=== PATIENT | female | born 1970 | race Caucasian/White ===

== ENCOUNTER → 2023-05-20 | Emergency (ER) | payer SELFPAY ==
[~2023-05-20] MED LIST: CEFTRIAXONE 1000 MG/VIAL ONE; CEPHALEXIN 250 MG CAP ONE; HYDROCODONE/APAP 5/325 MG TAB ONE; KETOROLAC 30 MG/ML INJ ONE; MORPHINE 4 MG/ML SYR ONE; NA CHLORIDE 0.9% 1,000 ML ONE; NA CHLORIDE 0.9% 50 ML ONE; ONDANSETRON 4 MG/2 ML VIAL ONE; PROMETHAZINE 25 MG TABLET ONE; TAMSULOSIN 0.4 MG SR CAP ONE; metroNIDAZOLE 500 MG TABLET ONE
[2023-05-20 18:57] LABS: Absolute Lymphocytes (CBC) 2.1 K/uL (0.7-4.9); Hematocrit 41.6 % (36.0-45.0); Lymphocytes % 18.2 % (15.3-44.8); MCV 89.3 fL (80-100); MPV 8.3 fL (7.6-11.3); Platelets 229 thou/uL (152-406); RBC Red Blood Cell Count 4.66 M/uL (3.86-4.86)
[2023-05-20 19:08] LABS: Specific Gravity 1.017 (1.005-1.030); Urine Bacteria <20 /HPF (<20); Urine Bilirubin NEGATIVE (Negative); Urine Blood Trace (Negative); Urine Clarity Extremely Turbid (Clear); Urine Color Light-Yellow (Yellow); Urine Crystals Unidentified Few /HPF (None Seen); Urine Glucose NEGATIVE (Negative); Urine Mucus Slight /HPF (None Seen); Urine Protein 1+ (Negative); Urine RBC 21-50 /HPF (None Seen); Urine Urobilinogen Normal (Normal); Urine WBC Clump Rare /HPF (None Seen); Urine pH 7.5 (5.0-7.0)
[2023-05-20 19:15] LABS: Albumin 3.8 g/dL (3.4-5.0); Bilirubin Total 0.3 mg/dL (0.2-1.0); Protein, Total 7.7 g/dL (6.4-8.2)
--- NOTE | 2023-05-20 20:36 | RAD REPORT ---
EXAM DESCRIPTION: CTAbdomen Pelvis W Contrast - 05/20/2023 8:23 pm CLINICAL HISTORY: ABD PAIN COMPARISON: No comparisons TECHNIQUE: CT of the abdomen and pelvis was performed. All CT scans are performed using dose optimization technique as appropriate and may include automated exposure control or mA/KV adjustment according to patient size. FINDINGS: Lower chest: 5 mm nodule in the right middle lobe which is subpleural in location is proba vitaliy benign. Liver: No acute abnormality or suspicious lesions. Biliary: No biliary ductal dilatation. Stomach: No significant focal abnormality. Duodenum: No significant focal abnormality. Pancreas: No significant abnormality. Spleen: No significant abnormality. Adrenal: No suspicious lesions. Kidney/ureter: Mild left-sided hydroureteronephrosis secondary to a 5 mm stone near the left distal u reter. Atrophic left kidney. At the left distal ureter near the stone, there is urothelial enhancemen t . Retroperitoneum: No retroperitoneal adenopathy. Vascular: No aneurysm. Bowel: No significant focal abnormality. Normal appendix . Peritoneum: No ascites or free air. Bladder: Grossly unremarkable. Reproductive: Small little cystic collections present in the region the endometrial canal. The larges t measures 8 millimeters. Bones: No acute fracture. Other: n/a IMPRESSION: Moderate left-sided hydroureteronephrosis secondary to a 5 mm stone at the left UVJ. Lef t renal cortical thinning noted which could indicate a chronic obstruction. Urothelial enhancement ne ar the stone probably due to inflammation. Small cystic structures in the uterus of uncertain etiology. Possibly of little clinical significance , nonemergent pelvic ultrasound could be considered to better characterize.
--- NOTE | 2023-05-20 22:20 | EDPHYS ---
Physician Documentation [facility] Name: Vicky Guillory Age: 52 yrs Sex: Female : 1970 Arrival Date: 05/20/2023 Time: 18:00 Bed 11 Private MD: ED Physician Venkat Villarreal HPI: 05/20 18:32 This 52 yrs old Female presents to ER via Ambulatory with complaints of Kidney Stone. ec2 18:32 Patient arrives today due to concern for left-sided flank pain. Patient reports that ec2 she is having left-sided flank pain that is ongoing for several days. Patient reports that it is worse with positional movements. Patient reports some nausea without vomiting, no diarrhea. Patient reports history of recurrent UTIs, states that she recently finished a course of antibiotics. Patient reports dysuria as well as foul-smelling urine.. Historical: - Allergies: 18:23 No Known Allergies; ll1 - PMHx: 18:23 None; ll1 - PSHx: 18:23 rectal artery repair; ll1 - Immunization history:: Adult Immunizations up to date. - Social history:: Smoking status: Patient denies any tobacco usage or history of. ROS: 18:32 Constitutional: as per hpi ec2 Exam: 18:32 Constitutional: GEN: NAD Head: atraumatic Eyes: EOMI Ears: External ears are ec2 normal. CV: regular rate LUNGS: no respiratory distress ABD: non-distended, soft, nontender, no guarding, nonrigid, left flank with TTP to minimal touch, no overlying skin changes, no crepitus, no ecchymosis. SKIN: no evidence of rashes MSK: no evidence of trauma NEURO: moves all extremities equally Vital Signs: 18:24 BP 130 / 90; Pulse 76; Resp 18; Temp 98.2; Pulse Ox 99% ; Pain 10/10; ll1 19:10 BP 128 / 74; Pulse 65; Resp 17 S; Pulse Ox 99% on R/A; ha1 20:00 BP 127 / 75; Pulse 68; Resp 17 S; Pulse Ox 99% on R/A; ha1 22:00 BP 126 / 76; Pulse 83; Resp 16; Pulse Ox 99% ; vc1 22:26 Weight 58.97 kg; vc1 18:24 Pain Scale: Adult ll1 MDM: 18:28 Patient medically screened. ec2 18:32 Data reviewed: vital signs. ED course: Patient arrives today for evaluation of left ec2 flank pain. Examination remarkable for well-appearing nontoxic dividual is otherwise in no acute distress with a reassuring abdominal exam with some left flank discomfort on palpation. Will obtain lab work, CT imaging and reassess the patient. Currently considering processes such as pyelonephritis, ureteral stone, MSK pain.. 19:34 ED course: CBC is unremarkable. Metabolic profile with appropriate electrolytes and ec2 renal function. Urine is infectious appearing with leuk esterase, WBCs present. Will give antibiotics. . 20:07 Transition of care: After a detail discussion of the patient's case, care is ec2 transferred to Venkat Villarreal MD. 20:38 ED course: CT - EXAM DESCRIPTION: CTAbdomen Pelvis W Contrast - 05/20/2023 8:23 pm sp4 CLINICAL HISTORY: ABD PAIN COMPARISON: No comparisons TECHNIQUE: CT of the abdomen and pelvis was performed. All CT scans are performed using dose optimization technique as appropriate and may include automated exposure control or mA/KV adjustment according to patient size. FINDINGS: Lower chest: 5 mm nodule in the right middle lobe which is subpleural in location is probably benign. Liver: No acute abnormality or suspicious lesions. Biliary: No biliary ductal dilatation. Stomach: No significant focal abnormality. Duodenum: No significant focal abnormality. Pancreas: No significant abnormality. Spleen: No significant abnormality. Adrenal: No suspicious lesions. Kidney/ureter: Mild left-sided hydroureteronephrosis secondary to a 5 mm stone near the left distal ureter. Atrophic left kidney. At the left distal ureter near the stone, there is urothelial enhancement . Retroperitoneum: No retroperitoneal adenopathy. Vascular: No aneurysm. Bowel: No significant focal abnormality. Normal appendix . Peritoneum: No ascites or free air. Bladder: Grossly unremarkable. Reproductive: Small little cystic collections present in the region the endometrial canal. The largest measures 8 millimeters. Bones: No acute fracture. Other: n/a IMPRESSION: Moderate left-sided hydroureteronephrosis secondary to a 5 mm stone at the left UVJ. Left renal cortical thinning noted which could indicate a chronic obstruction. Urothelial enhancement near the stone probably due to inflammation. Small cystic structures in the uterus of uncertain etiology. Possibly of little clinical significance, nonemergent pelvic ultrasound could be considered to better characterize. 05/20 18:28 Order name: CBC with Diff; Complete Time: 19:34 ec2 05/20 18:28 Order name: CMP; Complete Time: 19:34 ec2 05/20 18:28 Order name: Lipase; Complete Time: 19:34 ec2 05/20 18:28 Order name: Urinalysis w/ reflexes; Complete Time: 19:34 ec2 05/20 19:15 Order name: Urine Culture EDMS 05/20 18:28 Order name: CT Abd/Pelvis - IV Contrast Only; Complete Time: 20:39 ec2 05/20 18:28 Order name: IV Saline Lock; Complete Time: 18:50 ec2 05/20 18:28 Order name: Labs collected and sent; Complete Time: 18:50 ec2 05/20 21:32 Order name: Strain Urine; Complete Time: 21:52 sp4 Administered Medications: 19:15 Drug: NS 0.9% IV 1000 ml IV at 1 bolus Per protocol; 1000 mL bolus Route: IV; Rate: 1 ha1 bolus; Site: left antecubital; 19:15 Drug: Ondansetron IVP 4 mg IVP once; over 2 minutes Route: IVP; Site: left antecubital; ha1 19:17 Drug: TORadol - Ketorolac IVP 15 mg IVP once Route: IVP; Site: left antecubital; ha1 19:19 Drug: morphine IVP or IV 4 mg IVP once over 4 mins Route: IVP; Infused Over: 4 mins; ha1 Site: left antecubital; 19:44 Drug: Rocephin IV 1 grams IV at calculated rate once; Given slow IV push per pharmacy rv instructions Route: IV; Rate: calculated rate; Site: left antecubital; 21:10 Drug: Flomax PO 0.4 mg PO once Route: PO; rv 22:47 Follow up: Response: No adverse reaction; Marked relief of symptoms vc1 22:35 Drug: metroNIDAZOLE PO 500 mg PO once Route: PO; vc1 22:47 Follow up: Response: Medication administered at discharge. vc1 22:35 Drug: Promethazine PO 25 mg PO once Route: PO; vc1 22:47 Follow up: Response: Medication administered at discharge. vc1 22:36 Drug: HYDROcodone-acetaminophen PO 5 mg-325 mg 2 tabs PO once Route: PO; vc1 22:47 Follow up: Response: Medication administered at discharge. vc1 22:36 Drug: Ketorolac IVP 15 mg IVP once Route: IVP; Site: left antecubital; vc1 22:47 Follow up: Response: Medication administered at discharge. vc1 22:36 Drug: Cephalexin PO 500 mg PO once Route: PO; vc1 22:47 Follow up: Response: Medication administered at discharge. vc1 Disposition Summary: 05/20/23 22:19 Discharge Ordered Problem: new sp4 Symptoms: have improved sp4 Condition: Stable sp4 Diagnosis - Calculus of kidney sp4 - Left Ureteral stone with hydronephrosis and hematuria sp4 Followup: sp4 - With: Marcelo Guillaume MD - When: 5 - 6 days - Reason: Recheck today's complaints Discharge Instructions: - Discharge Summary Sheet sp4 - Kidney Stones sp4 Forms: - Work release form vc1 - Patient Portal Instructions sp4 Prescriptions: - Flomax 0.4 mg Oral capsule - take 1 capsule ORAL route every evening; 30 capsule; Refills: 0, Product sp4 Selection Permitted - ketorolac 10 mg Oral tablet - take 1 tablet ORAL route every 8 hours PRN pain; 30 tablet; Refills: 0, Product sp4 Selection Permitted - Cephalexin 500 mg Oral Capsule - take 1 capsule ORAL route every 8 hours for 10 days; 30 capsule; Refills: 0, sp4 Product Selection Permitted - Flagyl 500 mg Oral Tablet - take 1 tablet ORAL route every 8 hours for 10 days; 30 tablet; Refills: 0, sp4 Product Selection Permitted - Tramadol 50 mg Oral tablet - take 2 tablet ORAL route every 8 hours as needed , take together with sp4 Ketorolac; 20 tablet; Refills: 0, Product Selection Permitted - ondansetron 8 mg Oral Tablet,disintegrating - take 1 tablet ORAL route every 8 hours PRN nausea; 30 tablet; Refills: 0, sp4 Product Selection Permitted Signatures: Dispatcher [employer] Mrack South RN RN rv Lewis, Lynsay, RN RN ll1 Priscilla Galvan RN RN vc1 Christy Cunningham RN RN haVenkat Norris MD MD sp4 Chapo Faith MD MD ec2
--- NOTE | 2023-05-20 22:20 | ER ---
Nurse's Notes [facility] Name: Vicky Guillory Age: 52 yrs Sex: Female : 1970 Arrival Date: 05/20/2023 Time: 18:00 Bed 11 Private MD: Diagnosis: Calculus of kidney;Left Ureteral stone with hydronephrosis and hematuria Presentation: 05/20 18:24 Chief complaint: Patient states: L lower back pain for 2 hours with nausea. Having ll1 trouble with UTI that's resistant to meds for a couple weeks. Urinary frequency and pelvic pressure with urinating. Coronavirus screen: Client denies travel out of the [place] in the last 14 days. At this time, the client does not indicate any symptoms associated with coronavirus-19. Ebola Screen: Patient denies travel to an Ebola-affected area in the 21 days before illness onset. Initial Sepsis Screen: Does the patient meet any 2 criteria? No. Patient's initial sepsis screen is negative. Does the patient have a suspected source of infection? No. Patient's initial sepsis screen is negative. Risk Assessment: Do you want to hurt yourself or someone else? Patient reports no desire to harm self or others. Onset of symptoms was May 20, 2023. 18:24 Method Of Arrival: Ambulatory 1 18:24 Acuity: [place] 3 ll1 Triage Assessment: 18:25 General: Appears uncomfortable, ill, Behavior is calm, cooperative, appropriate for ll1 age. Pain: Complains of pain in L low back Quality of pain is described as aching. GI: Reports nausea. : Reports urgency, urinary frequency. Musculoskeletal: Reports pain in L lower back. Historical: - Allergies: 18:23 No Known Allergies; ll1 - PMHx: 18:23 None; ll1 - PSHx: 18:23 rectal artery repair; ll1 - Immunization history:: Adult Immunizations up to date. - Social history:: Smoking status: Patient denies any tobacco usage or history of. Screenin:50 [facility] ED Fall Risk Assessment (Adult) History of falling in the last 3 months, rv including since admission No falls in past 3 months (0 pts) Score/Fall Risk Level 0 - 2 = Low Risk Oriented to surroundings, Maintained a safe environment, Educated pt \T\ family on fall prevention, incl call for assistance when getting out of bed, Assessed \T\ reinforced patient's understanding of fall precautions. Abuse screen: Denies threats or abuse. Denies injuries from another. Nutritional screening: No deficits noted. Tuberculosis screening: No symptoms or risk factors identified. Assessment: 19:10 General: Appears uncomfortable, Behavior is calm, cooperative. Pain: Complains of pain ha1 in back Pain radiates to pelvis Pain currently is 8 out of 10 on a pain scale. Quality of pain is described as throbbing. Neuro: Level of Consciousness is awake, alert, obeys commands, Oriented to person, place, time, situation. Cardiovascular: Capillary refill < 3 seconds Patient's skin is warm and dry. Respiratory: Airway is patent Respiratory effort is even, unlabored, Respiratory pattern is regular, symmetrical. GI: Abdomen is round non-distended, Bowel sounds present X 4 quads. Reports nausea. : Reports urinary frequency. Derm: Skin is pink, warm \T\ dry. 20:00 Reassessment: Patient and/or family updated on plan of care and expected duration. Pain ha1 level reassessed. Patient is alert, oriented x 3, equal unlabored respirations, skin warm/dry/pink. Patient denies pain at this time. Patient states feeling better. Patient states symptoms have improved. 22:00 Reassessment: No changes from previously documented assessment. Patient and/or family vc1 updated on plan of care and expected duration. Pain level reassessed. Patient is alert, oriented x 3, equal unlabored respirations, skin warm/dry/pink. Vital Signs: 18:24 BP 130 / 90; Pulse 76; Resp 18; Temp 98.2; Pulse Ox 99% ; Pain 10/10; ll1 19:10 BP 128 / 74; Pulse 65; Resp 17 S; Pulse Ox 99% on R/A; ha1 20:00 BP 127 / 75; Pulse 68; Resp 17 S; Pulse Ox 99% on R/A; ha1 22:00 BP 126 / 76; Pulse 83; Resp 16; Pulse Ox 99% ; vc1 22:26 Weight 58.97 kg; vc1 18:24 Pain Scale: Adult ll1 ED Course: 18:05 Patient arrived in ED. mg5 18:07 Arm band placed on. ll1 18:12 Chapo Faith MD is Attending Physician. ec2 18:26 Triage completed. ll1 18:50 Initial lab(s) drawn, by me, sent to lab. Inserted saline lock: 20 gauge in left iw antecubital area, using aseptic technique. Blood collected. 18:50 Urinalysis w/ reflexes Sent. iw 19:38 Marck Winn, CLEOPATRA is Primary Nurse. rv 19:50 Patient has correct armband on for positive identification. Client placed on continuous rv cardiac and pulse oximetry monitoring. NIBP monitoring applied. 19:50 No provider procedures requiring assistance completed. rv 20:08 Attending Physician role handed off by Chapo Faith MD ec2 20:08 Venkat Villarreal MD is Attending Physician. ec2 20:24 CT Abd/Pelvis - IV Contrast Only In Process Unspecified. EDMS 22:18 Marcelo Guillaume MD is Referral Physician. sp4 22:49 IV discontinued, intact, bleeding controlled, No redness/swelling at site. Pressure vc1 dressing applied. Administered Medications: 19:15 Drug: NS 0.9% IV 1000 ml IV at 1 bolus Per protocol; 1000 mL bolus Route: IV; Rate: 1 ha1 bolus; Site: left antecubital; 19:15 Drug: Ondansetron IVP 4 mg IVP once; over 2 minutes Route: IVP; Site: left antecubital; ha1 19:17 Drug: TORadol - Ketorolac IVP 15 mg IVP once Route: IVP; Site: left antecubital; ha1 19:19 Drug: morphine IVP or IV 4 mg IVP once over 4 mins Route: IVP; Infused Over: 4 mins; ha1 Site: left antecubital; 19:44 Drug: Rocephin IV 1 grams IV at calculated rate once; Given slow IV push per pharmacy rv instructions Route: IV; Rate: calculated rate; Site: left antecubital; 21:10 Drug: Flomax PO 0.4 mg PO once Route: PO; rv 22:47 Follow up: Response: No adverse reaction; Marked relief of symptoms vc1 22:35 Drug: metroNIDAZOLE PO 500 mg PO once Route: PO; vc1 22:47 Follow up: Response: Medication administered at discharge. vc1 22:35 Drug: Promethazine PO 25 mg PO once Route: PO; vc1 22:47 Follow up: Response: Medication administered at discharge. vc1 22:36 Drug: HYDROcodone-acetaminophen PO 5 mg-325 mg 2 tabs PO once Route: PO; vc1 22:47 Follow up: Response: Medication administered at discharge. vc1 22:36 Drug: Ketorolac IVP 15 mg IVP once Route: IVP; Site: left antecubital; vc1 22:47 Follow up: Response: Medication administered at discharge. vc1 22:36 Drug: Cephalexin PO 500 mg PO once Route: PO; vc1 22:47 Follow up: Response: Medication administered at discharge. vc1 Medication: 19:50 VIS not applicable for this client. rv Outcome: 22:19 Discharge ordered by . sp4 22:48 Discharged to home ambulatory, with significant other, vc1 22:48 Condition: good 22:48 Discharge instructions given to patient, Instructed on discharge instructions, follow up and referral plans. medication usage, Demonstrated understanding of instructions, follow-up care, medications, Prescriptions given X 6 22:49 Patient left the ED. vc1 Signatures: Dispatcher [employer] Ingris Louis RN RN iw Vicente, Ronaldo, RN RN rv Lewis, Lynsay, RN RN ll1 Priscilla Galvan RN RN vc1 Christy Cunningham RN RN haVenkat Norris MD MD sp4 Xochitl Mckenzie mg5 Chapo Faith MD MD 2
[2023-05-21 04:47] VITALS: BP 126/76; TEMP 98.2; O2SAT 99
== END ==
LOC: ER 18:00
DX: N13.2 Hydronephrosis with renal and ureteral calculous obstruction (principal); R31.9 Hematuria, unspecified
CPT/HCPCS: 36415; 74177; 80053; 81001; 83690; 85025; 87086; 87088; 96374; 96375; 99284; J0696; J2405; J7030; Q0169; Q9967